=== PATIENT | male | born 1945 | race Caucasian/White ===

== ENCOUNTER 2025-01-30 19:24 | Emergency (ER) | payer MEDICARE, SELFPAY ==
[2025-01-30 19:27] VITALS: BP 140/75
--- NOTE | 2025-01-30 20:02 | ED.GENMED ---
History of Present Illness
General
Chief Complaint: Head Injury
Source: patient
Exam Limitations: none
Time Seen by Provider: 01/30/25 19:57
History of Present Illness
History of Present Illness:
See MDM
Past History
Past History
ED Past Medical History: Other (parkinsons)
ED Past Surgical History: None
Social History
Tobacco: Non-smoker
Alcohol: None
Phy Exam
Physical Exam
Physical Exam:
See MDM
Course
Orders/Labs/Results
Orders:
Orders
01/30/25 19:30
CT Head W/o Iv Contrast Urgent
Comment:
Reason For Exam: fall, head lac
Vital Signs
Initial and Last Documented VS:
Initial Vital Signs
Temp Pulse Resp BP Pulse Ox
98.8 F 77 17 140/75 99
01/30/25 19:27 01/30/25 19:27 01/30/25 19:27 01/30/25 19:27 01/30/25 19:27
Last Documented Vital Signs
Temp Pulse Resp BP Pulse Ox
98.8 F 77 17 140/75 99
01/30/25 19:27 01/30/25 19:27 01/30/25 19:27 01/30/25 19:27 01/30/25 19:27
MDM/Problems Addressed
Differential Diagnosis Includes:
HPI and MDM Narrative:
79-year-old male presenting with posterior head injury. Due to his Parkinson's, patient states has an unsteady gait. He did fall backwards hitting his head. He believes his tetanus is up-to-date. CT was done prior to my assessment showing no
acute intracranial hemorrhage. On my exam, about 2 cm x 2 cm posterior scalp abrasion. Will provide local wound care and patient feels comfortable going home
Physical exam
General: Well appearing and non-toxic
HEENT: protecting airway. Posterior scalp abrasion
Neck: appears supple
CV: No evidence of cyanosis
Resp: No accessory muscle use
Abd: Non-distended
Extremities: No deformities
Neuro: alert
Psych: Normal affect
Skin: Intact
Problems Addressed including Acute and Chronic Conditions affecting care:
1. Head injury
Acuity: acute
Prognosis: stable
Details: CT head negative. Will perform local wound care and discussed return precautions
Differential Diagnosis (but not limited to): Concussion, abrasion, intracranial hemorrhage
Testing considered: CT neck but he has no tenderness
Drug therapy (if applicable): OTC meds, please see d/c instruction regarding Rx drugs
Amount and/or Complexity of Data Reviewed
Clinical info obtained from: Patient
External data reviewed: N/A
Labs I independently reviewed (but not limited to): N/A
Radiology: The CT scan was personally and independently reviewed. In addition, official CT report reviewed.
Pulse Ox: not hypoxic
EKG independently reviewed: N/A
[employer]: N/A
Critical Care: N/A
Risk of Complication:
Social Determinants of health: Good social support
Discussed with other providers: N/A
Escalation of Care includes Admit/Obs: After being observed in the Emergency Department, pt stable for discharge.
Occasional wrong word or 'sound a like' substitutions may have occurred due to the inherent limitations of voice recognition software. Read the chart carefully and recognize, using context, where substitutions have occurred.
*Critical Care Note
Total Time (30-74mins, 75-104mins- exclusive of procedures): Not Applicable
ED Attending Note
-
Portions of this chart may have been created with voice recognition software.� Occasional wrong word or��sound alike� substitutions may have occurred due to the inherent limitations of voice recognition software.
Discharge Plan
Departure
Patient Disposition: Home (Routine Discharge)
Date of Disposition: 01/30/25
Time of Disposition: 20:04
Patient with high blood pressure during this ER visit?: No
Discharge Problem:
Head injury
Instructions: Wound Care (DC), Head Injury in Adults (DC)
Activity Restrictions/Additional Instructions:
Please return for any worsening symptoms.
You may return at any time if you have further concerns.
Please follow up with your doctor at the first available appointment, preferably this week.
Thank you for choosing [facility].
Interventions
Interventions:
*Risk Screen - Suicide Last Done: 01/30/25 19:30
*General Assessment Last Done: 01/30/25 19:30
*Neglect/Abuse Screening Last Done: 01/30/25 19:30
*ED COVID-19 Vaccine History Last Done: 01/30/25 19:30
Discharge Date and Time
Print Language: [place] LEONE[place]
--- NOTE | 2025-01-30 20:22 | EDRN ---
wound cleaned and dressed
== END 2025-01-30 20:22 | disposition home or self-care (01) ==
LOC: EMR 19:24
PROVIDERS: EMERGENCY PHYSICIAN Student in an Organized Health Care Education/Training Program; FAMILY PHYSICIAN Family Medicine
DX: S00.01XA Abrasion of scalp, initial encounter (principal); W19.XXXA Unspecified fall, initial encounter; G20.A1 Parkinson's disease without dyskinesia, without mention of fluctuations
CPT/HCPCS: 99284; 70450